=== PATIENT | female | born 1990 | race Caucasian/White ===

== ENCOUNTER → 2020-01-17 | Outpatient (CLI) | payer OTHER ==
[~2020-01-17] MED LIST: ALPR0.5T PO; CYCL-331 PO; TRAM50TA PO
--- NOTE | 2020-01-17 10:36 | RAD ---
EXAM: Bilateral hips and pelvis, 5 views. HISTORY: Pain. COMPARISON: None. FINDINGS: A frontal view the pelvis and frontal and frog-leg views of the hips are obtained. There is no fracture, dislocation or subluxation. The femoral heads are normal in configuration and location. There is an IUD overlying the pelvis slightly to the right of midline. There is sacralization of the left L5 transverse process resulting in articulation with the underlying sacrum, a normal variant. There are pelvic fluid was. IMPRESSION: No acute osseous finding. Electronically signed by: Jesenia Underwood MD (01/17/2020 10:33 AM) [id number]
== END | disposition home or self-care (01) ==
LOC: RAD 10:15
PROVIDERS: ATTEND Physician Assistant
DX: M43.27 Fusion of spine, lumbosacral region (principal)
CPT/HCPCS: 73521